=== PATIENT | female | born 1980 | race Caucasian/White ===

== ENCOUNTER → 2019-04-21 | Outpatient (CLI) | payer BC | LOC: M.RAD 14:33 | DX: Z12.31 Encounter for screening mammogram for malignant neoplasm of breast (principal); N64.89 Other specified disorders of breast ==

== ENCOUNTER → 2019-04-23 | Outpatient (CLI) | payer BC | LOC: M.ULTRA 15:21 | DX: R92.2 Inconclusive mammogram (principal) ==